=== PATIENT | female | born 1985 | race Caucasian/White ===

== ENCOUNTER 2016-05-01 03:25 | Emergency (ER) | payer MEDICAID ==
[2016-05-01 03:42] VITALS: BP 114/92; PULSE 112; RESP 18; TEMP 98.1; O2SAT 97
--- NOTE | 2016-05-01 04:41 | EDPHY ---
H & P Stated Complaint: ETOH FALL ON STAIRS, L WRIST PAIN Time Seen by Provider: 05/01/16 04:08 HPI/ROS: HPI The patient presents with a fall which occurred about 1 hour ago. She was drinking alcohol and fell down 3 steps in her basement after she tripped, she fell on to her left wrist and has been having pain ever since. The pain is achy , well localized to her wrists, does not radiate and has been constant. She is feeling somewhat anxious. She is left-hand dominant REVIEW OF SYSTEMS Constitutional: No fever, no chills. Eyes: No discharge. ENT: No sore throat. Cardiovascular: No chest pain, no palpitations. Respiratory: No cough, no shortness of breath. Gastrointestinal: No abdominal pain, no vomiting. Genitourinary: No hematuria. Musculoskeletal: No back pain. Skin: No rashes. Neurological: No headache. PMHx: Anxiety Soc Hx: Alcohol use PHYSICAL General Appearance: Alert, no distress Eyes: Pupils equal and round no pallor or injection ENT, Mouth: Mucous membranes moist Respiratory: There are no retractions, lungs are clear to auscultation Cardiovascular: Regular rate and rhythm Gastrointestinal: Abdomen is soft and non-tender, no masses, bowel sounds normal Neurological: A&O, moves all extremities Skin: Warm and dry, no rashes Musculoskeletal: Neck is supple non tender Extremities: Left wrist with tenderness overlying the distal radius, limited range of motion secondary to pain, full range of motion of digits, 2+ radial pulses Psychiatric: Patient is oriented X 3, there is no agitation Source: Patient - Personal History Current Tetanus/Diphtheria Vaccine: Unsure Current Tetanus Diphtheria and Acellular Pertussis (TDAP): Unsure Tetanus Vaccine Date: probably >10 yr - Medical/Surgical History Hx Asthma: No Hx Chronic Respiratory Disease: No Hx Diabetes: No Hx Cardiac Disease: No Hx Renal Disease: No Hx Cirrhosis: No Hx Alcoholism: No Hx HIV/AIDS: No Hx Splenectomy or Spleen Trauma: No Other PMH: UTI x 6, wisdom teeth - Social History Smoking Status: Current every day smoker Constitutional: Initial Vital Signs Temperature (C) 36.7 C 05/01/16 03:25 Heart Rate 112 H 05/01/16 03:25 Respiratory Rate 18 05/01/16 03:25 Blood Pressure 114/92 H 05/01/16 03:25 O2 Sat (%) 97 01/14/17 03:25 O2 Delivery Mode Room Air Allergies/Adverse Reactions: latex Allergy (Uncoded 05/01/16 03:42) Home Medications: Medication Instructions Recorded NK [No Known Home Meds] 05/01/16 Medical Decision Making - Diagnostics Imaging: Left wrist x-ray three views shows nondisplaced distal radius fracture, interpreted by me, radiology interpretation is pending. Procedures: SPLINT Procedure: Splint placement. A ortho glass sugar-tong splint was applied to the left wrist by the tech. After application of the splint I returned and re-examined the patient. The splint was adequately immobilizing the joint and distal to the splint the patient's circulation and sensation was intact. ED Course/Re-evaluation: X-rays were obtained which demonstrated distal radius fracture. The patient was placed in a sugar-tong splint with sling. She was given information for orthopedic follow-up. All of her questions were answered. Differential Diagnosis: This is a 30-year-old left-hand dominant female who presents with a fall down 3 stairs earlier tonight in the setting of alcohol use. She has no other injuries. She is brought in by ambulance. On exam, she has tenderness of her wrist with mild swelling. Differential diagnosis includes distal radius fracture, ulnar fracture, wrist sprain. Departure - Departure Clinical Impression: Distal radius fracture, left Instructions: Wrist Fracture in Adults (ED), Splint Care (ED) Additional Instructions: You have a broken wrist and will need to wear the splint until evaluated by the orthopedic doctor. Please call them for an appointment within the next 1 week. He should return to the emergency room for any worsening pain, swelling, numbness or tingling. Referrals: Gurpreet Andres MD [Medical Doctor] - As per Instructions
--- NOTE | 2016-05-01 09:06 | DX ---
Left Wrist, Four Views Including a Navicular View Clinical Indications: Pain following trauma. Findings: There is a subtle lucency with associated focal cortical irregularity involving the distal radial diaphysis consistent with a nondisplaced distal radial fracture. Fracture does not definitely extend to the articular surface. Soft tissue swelling is noted. No other fracture is seen. The bone a lignment is normal. Impression: Suspect a nondisplaced distal left radial fracture. A preliminary report was called to Dr. Teixeira by Dr. Jackson. Conservative management and follow u p radiography were recommended.
== END 2016-05-01 05:04 | disposition home or self-care (01) ==
LOC: EDUNIT# → EDBD
DX: S52.502A Unspecified fracture of the lower end of left radius, initial encounter for closed fracture (principal); F17.200 Nicotine dependence, unspecified, uncomplicated; Z91.040 Latex allergy status; W10.9XXA Fall (on) (from) unspecified stairs and steps, initial encounter
CPT/HCPCS: A4565